=== PATIENT | male | born 1960 | race Caucasian/White ===

== ENCOUNTER 2021-04-16 14:47 | Inpatient (IN) | payer SELFPAY ==
[~2021-04-16] VITALS: Ht 172.7 cm; Wt 80.0 kg
[2021-04-16 16:28] LABS: BASO # 0.1 (0.0-0.2); BASO % 0.3 % (0.0-2.0); EOS # 0.1 (0.0-0.7); EOS % 0.3 % (0-4.0); GRAN # 14.4 (1.4-6.5); GRAN % 81.9 % (42.2-75.2); HEMOGLOBIN 11.7 g/dl (13.5-18.0); LYMPH # 1.8 (1.2-3.4); LYMPH % 10.2 % (20.0-51.0); MEAN CELL VOLUME 88 fl (80.0-100.0); MEAN CORPUSCULAR HEMOGLOBIN 30 pg (27.0-31.0); MEAN CORPUSCULAR HGB CONC 34 g/dl (33.0-37.0); MEAN PLATELET VOLUME 9.8 fl (7.4-10.4); MONO # 1.1 (0.1-0.6); MONO % 6.2 % (1.7-9.3); PLATELET COUNT 245 K/mm3 (130-400); RED BLOOD COUNT 3.94 M/mm3 (4.20-5.60); REDCELL DISTRIBUTION WIDTH-CV 13.7 % (11.5-14.5)
[2021-04-16 16:33] LABS: ALBUMIN 4.4 gm/dL (3.5-5.0); BILIRUBIN,TOTAL 0.4 mg/dL (0.0-1.0); CALCIUM 9.4 mg/dL (8.4-10.2); CREATININE, serum 1.98 (0.66-1.25); POTASSIUM 4.9 mmol/L (3.4-5.0); TOTAL PROTEIN 8.7 gm/dL (6.4-8.2)
[2021-04-16 16:39] LABS: HEMATOCRIT 34.5 % (42.0-52.0)
[2021-04-16] MEDS ORDERED: LYRICA 150MG C150 MG PO (18:33)
[2021-04-16] MEDS ORDERED: VOLTAREN 75 DR75 MG PO (18:33)
[2021-04-16] MEDS ORDERED: PAMELOR 25MG25 MG PO (18:34)
[2021-04-16] MEDS ORDERED: SEPTRA DS 8001 TAB PO (18:35)
[2021-04-16] MEDS ORDERED: GLUCOPHAGE500 MG/TAB PO (18:35)
[2021-04-16] MEDS ORDERED: ALTACE 10MG TAB10 MG PO (18:36)
[2021-04-16] MEDS ORDERED: DILACOR PO (18:37)
[2021-04-16] MEDS ORDERED: CELEXA 20MG20 MG/TAB PO (18:38)
[2021-04-16] MEDS ORDERED: GLUCOTROL 5M5 MG/TAB PO (18:38)
[2021-04-16] MEDS ORDERED: ZANAFLEX CAPSULE2 MG PO (18:39)
[2021-04-16] MEDS ORDERED: TOPAMAX50 MG PO (18:39)
[2021-04-16] MEDS ORDERED: PREVACID 30MG30 M1 PO (18:40)
[2021-04-16 19:51] VITALS: BP 135/99; PULSE 91; TEMP 97.9
[2021-04-16 20:58] LABS: IRON,SERUM 17 ug/dL (35-150)
[2021-04-16 21:07] LABS: TOTAL IRON BINDING CAPACITY 199 ug/dL (261-462)
[2021-04-16 23:09] VITALS: BP 119/71; PULSE 86; TEMP 98.2
[2021-04-17] VITALS (7 sets, daily range): BP systolic 88–139; BP diastolic 37–70; PULSE 79–108; TEMP 97.8–101.4
[2021-04-17 09:28] LABS: BASO # 0.1 (0.0-0.2); BASO % 0.5 % (0.0-2.0); EOS # 0.2 (0.0-0.7); EOS % 1.8 % (0-4.0); GRAN # 11.4 (1.4-6.5); GRAN % 83.5 % (42.2-75.2); HEMOGLOBIN 10.5 g/dl (13.5-18.0); LYMPH # 0.9 (1.2-3.4); LYMPH % 6.3 % (20.0-51.0); MEAN CELL VOLUME 90 fl (80.0-100.0); MEAN CORPUSCULAR HEMOGLOBIN 30 pg (27.0-31.0); MEAN CORPUSCULAR HGB CONC 33 g/dl (33.0-37.0); MEAN PLATELET VOLUME 9.7 fl (7.4-10.4); MONO # 0.9 (0.1-0.6); MONO % 6.5 % (1.7-9.3); PLATELET COUNT 191 K/mm3 (130-400); RED BLOOD COUNT 3.56 M/mm3 (4.20-5.60); REDCELL DISTRIBUTION WIDTH-CV 13.7 % (11.5-14.5)
[2021-04-17 09:38] LABS: CALCIUM 8.9 mg/dL (8.4-10.2); CREATININE, serum 1.24 (0.66-1.25); POTASSIUM 4.4 mmol/L (3.4-5.0)
[2021-04-18] VITALS (8 sets, daily range): BP systolic 93–150; BP diastolic 39–80; PULSE 86–102; TEMP 98.6–102.6
[2021-04-18 03:32] LABS: SQUAMOUS EPITHELIAL None Seen /hpf; URINE BACTERIA None Seen /hpf; URINE RBC 0-2 /hpf; URINE WBC 0-2 /hpf
[2021-04-18 07:19] LABS: HEMOGLOBIN 10.1 g/dl (13.5-18.0); MEAN CELL VOLUME 87 fl (80.0-100.0); MEAN CORPUSCULAR HEMOGLOBIN 29 pg (27.0-31.0); MEAN CORPUSCULAR HGB CONC 34 g/dl (33.0-37.0); MEAN PLATELET VOLUME 9.7 fl (7.4-10.4); PLATELET COUNT 200 K/mm3 (130-400); RED BLOOD COUNT 3.45 M/mm3 (4.20-5.60); REDCELL DISTRIBUTION WIDTH-CV 13.6 % (11.5-14.5)
[2021-04-18 07:26] LABS: CALCIUM 8.3 mg/dL (8.4-10.2); CHOLESTEROL RISK RATIO 9.9; CREATININE, serum 1.35 (0.66-1.25)
[2021-04-18 07:39] LABS: HEMATOCRIT 30.1 % (42.0-52.0)
[2021-04-18 08:53] LABS: BAND 5 % (0-10); EOSINOPHIL 3 % (0-4); LYMPHOCYTE 16 % (20.0-51.0); METAMYELOCYTE 1 % (0-0); NEUTROPHILS 69 % (42.0-75.2); PLATELET ESTIMATE NORMAL (NORMAL)
[2021-04-18 18:44] LABS: PARTIAL THROMBOPLASTIN TIME 27.3 SECONDS (26.0-37.0)
== END 2021-04-18 21:00 | disposition short-term general hospital (02) | DRG 872 ==
LOC: COL.ER 14:47 → SURG 17:31
PROVIDERS: Internal Medicine; Nurse Practitioner; Physician Assistant; ADMIT Internal Medicine
DX: A41.9 Sepsis, unspecified organism (principal); E11.52 Type 2 diabetes mellitus with diabetic peripheral angiopathy with gangrene; I96 Gangrene, not elsewhere classified; N17.9 Acute kidney failure, unspecified; F41.9 Anxiety disorder, unspecified; F17.210 Nicotine dependence, cigarettes, uncomplicated; E11.65 Type 2 diabetes mellitus with hyperglycemia; D64.9 Anemia, unspecified; I25.10 Atherosclerotic heart disease of native coronary artery without angina pectoris; E11.51 Type 2 diabetes mellitus with diabetic peripheral angiopathy without gangrene; Z20.822 Contact with and (suspected) exposure to COVID-19; E11.22 Type 2 diabetes mellitus with diabetic chronic kidney disease; N18.30 Chronic kidney disease, stage 3 unspecified; G43.909 Migraine, unspecified, not intractable, without status migrainosus; E11.40 Type 2 diabetes mellitus with diabetic neuropathy, unspecified; Z79.84 Long term (current) use of oral hypoglycemic drugs; Z79.899 Other long term (current) drug therapy; Z95.818 Presence of other cardiac implants and grafts
CPT/HCPCS: 99232-AI; 99239; J1644; J1650; J1652; J1815; J2543; J3370; J7030; J7050; J7120